=== PATIENT | male | born 1965 | race Caucasian/White ===

== ENCOUNTER 2020-12-11 01:44 | Emergency (ER) | payer OTHER ==
[~2020-12-11] VITALS: Ht 167.6 cm; Wt 72.6 kg
== END 2020-12-11 02:29 | disposition home or self-care (01) ==
LOC: ED 01:44
DX: R41.82 Altered mental status, unspecified (principal); I10 Essential (primary) hypertension; Z88.0 Allergy status to penicillin
CPT/HCPCS: 99285